=== PATIENT | female | born 2000 | race American Indian/Alaskan Native ===

== ENCOUNTER 2018-06-21 09:36 | Emergency (ER) | payer SELFPAY ==
[2018-06-21 09:44] VITALS: BP 120/66
--- NOTE | 2018-06-21 10:12 | Emergency Department Report ---
ED Female HPI - General Chief complaint: Vaginal Bleeding Stated complaint: Time Seen by Provider: 06/21/18 10:12 Source: patient Mode of arrival: Ambulatory Limitations: No Limitations - History of Present Illness Initial comments: Patient is a 18-year-old -[place] female who comes to the ER with vaginal bleeding. She states that her last menstrual cycle was 1017. She did have a positive home test. Given some vaginal bleeding that she had this morning although it was like she was concerned and came to the emergency room. She is having no abdominal pain. This is her first . She has not seen an [facility] as of yet. MD Complaint: vaginal bleeding -: Sudden Improves with: none Worsens with: none Are you Now?: Yes (lmp 11-17) Associated Symptoms: vaginal bleeding - Related Data Sexually active: Yes : 1 Para: 0 A: 0 Allergies Allergy/AdvReac Type Severity Reaction Status Date / Time No Known Allergies Allergy Unverified 06/21/18 09:39 ED Review of Systems ROS: Stated complaint: Other details as noted in HPI Comment: All other systems reviewed and negative Constitutional: denies: chills Eyes: denies: eye pain ENT: denies: ear pain Respiratory: denies: cough Cardiovascular: denies: chest pain Endocrine: denies: intolerance to cold Gastrointestinal: denies: abdominal pain Genitourinary: other (pregancy w vag bleed). denies: dysuria Musculoskeletal: denies: back pain Skin: denies: rash Neurological: denies: weakness Hematological/Lymphatic: denies: easy bleeding ED Past Medical Hx - Past Medical History Previous Medical History?: No - Surgical History Past Surgical History?: No - Family History Family history: no significant - Social History Smoking Status: Never Smoker Substance Use Type: None ED Physical Exam - General Limitations: No Limitations General appearance: alert - Head Head exam: Present: atraumatic - Eye Eye exam: Present: normal appearance Pupils: Present: normal accommodation - ENT ENT exam: Present: normal exam - Neck Neck exam: Present: normal inspection - Respiratory Respiratory exam: Present: normal lung sounds bilaterally - Cardiovascular Cardiovascular Exam: Present: regular rate - GI/Abdominal GI/Abdominal exam: Present: soft - Rectal Rectal exam: Present: deferred - External exam: Present: normal external exam Speculum exam: Present: normal speculum exam Bi-manual exam: Present: normal bi-manual exam - Extremities Exam Extremities exam: Present: normal inspection, full ROM - Back Exam Back exam: Present: normal inspection, full ROM - Neurological Exam Neurological exam: Present: alert, oriented X3 - Psychiatric Psychiatric exam: Present: normal affect, normal mood - Skin Skin exam: Present: warm, dry ED Course Vital Signs 06/21/18 09:41 Temperature 97.8 F Pulse Rate 94 H Respiratory 18 Rate Blood Pressure 120/66 O2 Sat by Pulse 100 Oximetry ED Medical Decision Making - Lab Data Result diagrams: 06/21/18 10:14 06/21/18 10:14 - Radiology Data Radiology results: report reviewed, image reviewed - Medical Decision Making labs noted us noted pt educated will need follow up dc home w referral - Differential Diagnosis ro ab Critical care attestation.: If time is entered above; I have spent that time in minutes in the direct care of this critically ill patient, excluding procedure time. ED Disposition Clinical Impression: Disposition: DC-01 TO HOME OR SELFCARE Is pt being admited?: No Does the pt Need Aspirin: No Condition: Stable Instructions: (ED) Additional Instructions: follow up with obgyn susan no drugs or alcohol rest tylenol for pain pelvic rest Referrals: PRIMARY CARE, [Primary Care Provider] - 3-5 Days CHAVA LOPEZ MD [Staff Physician] - 3-5 Days Time of Disposition: 13:27
[2018-06-21 10:13] LABS: HCG Qualitative,Urine Positive (Negative)
[2018-06-21 10:16] LABS: Bilirubin,Urine NEG (Negative); Blood,Urine SM (Negative); Color,Urine Yellow (Yellow); Mucus,Urine 2+ /HPF; Protein,Urine <15 mg/dL mg/dL (Negative); RBC,Urine < 1.0 /HPF (0.0-6.0)
[2018-06-21 10:24] LABS: Basophils % (Auto) 0.5 % (0.0-1.8); Eosinophils % (Auto) 0.3 % (0.0-4.3); Hematocrit 37.5 % (30.3-42.9); Hemoglobin 12.1 gm/dl (10.1-14.3); Lymphocytes # (Auto) 2.4 K/mm3 (1.2-5.4); Lymphocytes % (Auto) 30.1 % (13.4-35.0); Mean Corpuscular HGB Conc 32 % (30-34); Mean Corpuscular Hemoglobin 28 pg (28-32); Mean Corpuscular Volume 88 fl (79-97); Monocytes # (Auto) 0.5 K/mm3 (0.0-0.8); Monocytes % (Auto) 6.4 % (0.0-7.3); Platelet Count 411 K/mm3 (140-440); Red Blood Count 4.27 M/mm3 (3.65-5.03)
[2018-06-21 10:47] LABS: BUN/Creatinine Ratio 20; Blood Urea Nitrogen 10 mg/dL (7-17); Calcium 8.7 mg/dL (8.4-10.2); Hemolysis Index 6
--- NOTE | 2018-06-21 13:14 | Ultrasound Report ---
ULTRASOUND OB LESS THAN 14 WEEKS - TRANSABDOMINAL AND TRANSVAGINAL INDICATION: , vaginal spotting/bleeding. Serum beta-hCG 10,364 units. COMPARISON: None similar at this institution. FINDINGS: Transabdominal and transvaginal pelvic sonography performed in this patient with LMP of 04/12/2018 and estimated menstrual age of 10 weeks and zero days. A 6.6 x 3.6 x 4.2 cm anteverted uterus demonstrates a single posterior fundal cystic focus along the endometrium without evidence of a pole at this time. Mean gestational sac diameter of 1.1 cm corresponds to 5 weeks and 6 days. A small 0.5 x 0.3 cm adjacent cystic focus/possible subarachnoid hemorrhage as on endovaginal image 12. No definite yolk sac seen. No significant pelvic free fluid. Unremarkable bilateral ovaries, approximately 2.6 x 1.2 x 1.7 cm on the right and 3.4 x 1.8 x 2.1 cm on the left. CONCLUSION: 1. Sonographic findings may represent an intrauterine gestational sac/?early estimated at 5 weeks and 6 days with EDC of 02/15/2019, though viability yet not confirmed at this time. Accuracy of the LMP also needs to be established to explain approximately 4 weeks discrepancy with the estimated menstrual age and assess for possible anembryonic /blighted ovum in an appropriate setting. 2. Normal bilateral ovaries. Please also correlate clinically, with serial serum beta-hCG values and/or followup sonogram, as warranted. Thank you for the opportunity to participate in this patient's care.
== END 2018-06-21 13:36 | disposition home or self-care (01) ==
LOC: ED 09:36
DX: O26.891 Other specified pregnancy related conditions, first trimester (principal); O20.8 Other hemorrhage in early pregnancy; R10.2 Pelvic and perineal pain; Z3A.01 Less than 8 weeks gestation of pregnancy
CPT/HCPCS: 36415; 76801; 76817; 80048; 81001; 81025; 84702; 85025